=== PATIENT | female | born 1965 | race Asian ===

== ENCOUNTER 2017-09-01 14:54 | Inpatient (IN) | payer MEDICAID ==
[~2017-09-01] VITALS: Ht 162.6 cm; Wt 65.0 kg
[2017-09-01 15:07] VITALS: Ht 162.6 cm; Wt 65.0 kg
[2017-09-01 16:57] LABS: BASOPHIL % 0.6 % (0-2); PLATELET COUNT 327 x10^3mcL (130-400); RED CELL DISTRIBUTION WIDTH 12.9 % (11.5-14.5)
[2017-09-01 16:59] LABS: CALCIUM 9.2 mg/dL (8.5-10.1); CARBON DIOXIDE 26.9 mmol/L (21-32); CHLORIDE SERUM 104 mmol/L (98-107); CREATININE SERUM 0.6 mg/dL (0.6-1.0); GFR1 > 60 mL/min; GLUCOSE SERUM 98 mg/dL (74-106); POTASSIUM SERUM 4.2 mmol/L (3.5-5.1); SODIUM SERUM 141 mmol/L (136-145)
[2017-09-01 17:05] LABS: ALBUMIN 3.9 g/dL (3.4-5.0); ALKALINE PHOSPHATASE 70 U/L (46-116); ALT/SGPT 23 U/L (14-59); AST/SGOT 19 U/L (15-37); BILIRUBIN TOTAL 0.4 mg/dL (0.20-1.00); TOTAL PROTEIN, SERUM 8.1 g/dL (6.4-8.2)
[2017-09-01] MEDS ORDERED: METFORMIN HYD1000 M2 PO (19:36)
[2017-09-01] MEDS ORDERED: LISINOPRIL10 MG PO (19:37)
[2017-09-01 19:53] LABS: AMYLASE 54 U/L (25-115); LIPASE 81 IU/L (73-393)
[2017-09-01 19:57] LABS: CHOLESTEROL 222 mg/dL (<200); HDL CHOLESTEROL 87 mg/dL (40-60)
[2017-09-01 20:01] LABS: microscopic required? NO
[2017-09-01 20:29] LABS: MAGNESIUM 2.1 mg/dL (1.8-2.4); PHOSPHOROUS 3.8 mg/dL (2.5-4.9)
[2017-09-01 20:31] LABS: CHOLESTEROL/HDL RATIO 2.6
[2017-09-01 20:36] LABS: T3 TOTAL 0.86 ng/mL
[2017-09-01 20:39] LABS: FREE T4 1.18 ng/dL (0.76-1.46); FREE THYROXINE INDEX 3.2 ug/dL (1.4-4.5); T4(THYROXINE) 8.6 ug/dL (4.7-13.3)
[2017-09-01 20:43] VITALS: BP 126/75
[2017-09-01 20:47] LABS: urine erythrocyte NEGATIVE (NEGATIVE)
[2017-09-01 20:56] LABS: AMPHETAMINE QUAL UR NONE DETECTED (NEG <=1000)
[2017-09-02 06:01] VITALS: BP 129/75
[2017-09-02 07:36] LABS: BASOPHIL % 0.7 % (0-2); PLATELET COUNT 294 x10^3mcL (130-400); RED CELL DISTRIBUTION WIDTH 12.9 % (11.5-14.5)
[2017-09-02 08:03] LABS: CALCIUM 8.2 mg/dL (8.5-10.1); CARBON DIOXIDE 26.2 mmol/L (21-32); CHLORIDE SERUM 106 mmol/L (98-107); CREATININE SERUM 0.6 mg/dL (0.6-1.0); GFR1 > 60 mL/min; GLUCOSE SERUM 107 mg/dL (74-106); MAGNESIUM 1.9 mg/dL (1.8-2.4); PHOSPHOROUS 3.3 mg/dL (2.5-4.9); POTASSIUM SERUM 3.9 mmol/L (3.5-5.1); SODIUM SERUM 141 mmol/L (136-145)
[2017-09-02 09:32] VITALS: BP 119/73
[2017-09-02] MEDS ORDERED: NITROSTAT0.4 MG SL ×2 (12:58→13:01)
[2017-09-02] MEDS ORDERED: SERTRALINE25 M1 PO (12:59)
[2017-09-02] MEDS ORDERED: LIPI20 PO (13:20)
[2017-09-02 13:46] VITALS: BP 119/73
== END 2017-09-02 15:20 | disposition home or self-care (01) | DRG 198 ==
LOC: ED 14:54 → DU 19:16
PROVIDERS: Emergency Medicine; Family Medicine
DX: I20.8 Other forms of angina pectoris (principal); N17.0 Acute kidney failure with tubular necrosis; D68.69 Other thrombophilia; E11.65 Type 2 diabetes mellitus with hyperglycemia; E11.51 Type 2 diabetes mellitus with diabetic peripheral angiopathy without gangrene; Z68.41 Body mass index [BMI] 40.0-44.9, adult; E83.51 Hypocalcemia; E86.0 Dehydration; D64.9 Anemia, unspecified; I10 Essential (primary) hypertension; E78.2 Mixed hyperlipidemia; Z79.84 Long term (current) use of oral hypoglycemic drugs
CPT/HCPCS: 82962; 83880; 84439; J7030; Q0092